=== PATIENT | female | born 1970 | race Caucasian/White ===

== ENCOUNTER 2017-09-30 22:10 | Emergency (ER) | payer OTHER ==
[2017-09-30 22:13] VITALS: BP 137/76; PULSE 70; TEMP 98.4; BMI 21.1
[2017-09-30] MEDS ORDERED: SODIUM CHLORIDE 1,000 ML IV ONE (22:38)
[2017-09-30] MEDS ORDERED: KETOROLAC TROMETHAMINE 30 MG/1 ML VIAL IVPUSH ONE (22:39)
--- NOTE | 2017-09-30 22:39 | PDOC ---
History of Present Illness - General Chief Complaint: Allergic Reaction Stated Complaint: ALLERGIC REACTION Time Seen by Provider: 09/30/17 22:31 History Source: Patient Exam Limitations: No Limitations - History of Present Illness Initial Comments: 09/30/17 22:30 This is a 47-year-old female who comes in complaining of severe epigastric pain approximately 20 minutes after taking Tylenol with Codeine. Patient denies any nausea. Patient said pain is radiating to her chest. Patient denies any shortness of breath, cough, congestion. Patient had recent dental surgery today and took the Tylenol with codeine for some dental pain. She is otherwise healthy , has no history of hypertension, high cholesterol, diabetes or family history of coronary artery disease. Patient denies history of gastritis or similar symptoms in the past. PAST MEDICAL HISTORY: no significant history PAST SURGICAL HISTORY: no significant history FAMILY HISTORY: no pertinant history SOCIAL HISTORY: Pt lives with family and is employed. MEDICATIONS: reviewed ALLERGIES: As per nursing notes Review of Systems General: No fevers or chills, no weakness, no weight loss HEENT: No change in vision. No sore throat,. No ear pain CardioVascular: No chest pain or shortness of breath Respiratory:No cough, or wheezing. Gastrointestinal: no nausea, vomitting, diarrhea or constipation, No rectal bleeding Genitourinary: No dysuria, hematuria, or frequency Musculoskeletal: No joint or muscle pain or swelling Neurologic: No headache, vertigo, dizziness or loss of consciousness Psychiatric: nor depression Skin: No rashes or easy bruising Endocrine: no increased thirst or abnormal weight change Allergic: no skin or latex allergy All other systems reviewed and normal Exam: General: Well-nourished well-developed individual, in distress. Writhing with discomfort on the stretcher HEENT: Throat: Normal, tonsils normal, no erythema or exudate Neck: Supple, no meningeal signs, no lymphadenopathy Eyes::Pupils equal reactive and round, extraocular motion intact Chest: Nontender to palpation Cardiac: S1-S2 normal, regular rate and rhythm, no murmurs rubs or gallops Respiratory: Lungs clear to auscultation bilateral Abdomen: Soft, nondistended, normal bowel sounds, moderately tender across palpation of upper abdomen no guarding or rebound Extremities: Warm, dry, no cyanosis, clubbing, or edema Skin: No rashes Neuro: Alert and oriented x3, CN II - XII intact, nonfocal exam with normal strength, normal sensation, normal reflexes, normal gait, Psych: Normal mood and affect Medical decision making: This is a 47-year-old female who developed acute onset of epigastric pain post taking a codeine tablet. Patient has not had codeine in the past. Most likely her symptoms are secondary to the codeine however will obtain a basic workup to rule out other causes. CBC, comp, lipase sent to lab EKG ordered. Patient given fluids, hyoscyamine, Pepcid and Zofran We will reassess and evaluate results of workup 23:30 Reassessment patient's symptoms have completely resolved she is completely comfortable and denies any complaints at this time post medication patient's workup was unremarkable with a normal white count and normal chemistries with the exception of a 3.3 potassium. Patient does have a history of hypokalemia very mild in the past. Patient's EKG showed normal sinus rhythm at a rate of 68 normal EKG Patient discharged home told to not take codeine and avoid codeine in the future patient did not want any additional pain medication at this time. : Past History - Past Medical History Allergies/Adverse Reactions: Allergies Allergy/AdvReac Type Severity Reaction Status Date / Time No Known Allergies Allergy Verified 09/30/17 22:11 Home Medications: Ambulatory Orders NK [No Known Home Medication] 09/30/17 COPD: No DVT: No - Surgical History Cholecystectomy: Yes - Suicide/Smoking/Psychosocial Hx Smoking History: Never smoked Hx Alcohol Use: Yes Drug/Substance Use Hx: No Substance Use Type: Alcohol *Physical Exam - Vital Signs Last Vital Signs Temp Pulse Resp BP Pulse Ox 98.4 F 70 18 137/76 100 09/30/17 22:11 09/30/17 22:11 09/30/17 22:11 09/30/17 22:11 09/30/17 22:11 ED Treatment Course - LABORATORY CBC & Chemistry Diagram: 09/30/17 22:34 09/30/17 22:34 *DC/Admit/Observation/Transfer Diagnosis at time of Disposition: Medication reaction Qualifiers: Encounter type: initial encounter Qualified Code(s): T88.7XXA - Unspecified adverse effect of drug or medicament, initial encounter - Discharge Dispostion Disposition: HOME Condition at time of disposition: Stable Admit: No - Referrals Referrals: Nelly Langley MD [Primary Care Provider] - - Patient Instructions Additional Instructions: Continue your medications as prescribed. Return to the emergency department immediately with ANY new, persistent or worsening symptoms. Continue any medications as previously prescribed by your physician. You should follow up with your primary doctor as soon as possible regarding today's emergency department visit. . Please make sure your doctor reviews the results of your emergency evaluation. Thank you for coming to the Emergency Department today for your care. It was a pleasure to see you today. Please note that your evaluation is INCOMPLETE until you follow-up with your doctor. - Post Discharge Activity
[2017-09-30] MEDS ORDERED: HYOSCYAMINE SULFATE 0.125 MG *ODT PO ONE (22:44)
[2017-09-30] MEDS ORDERED: HYOSCYAMINE SULFATE 0.125 MG *ODT ONE (22:48)
[2017-09-30] MEDS ORDERED: KETOROLAC TROMETHAMINE 30 MG/1 ML VIAL ONE (22:48)
[2017-09-30] MEDS ORDERED: FAMOTIDINE 20 MG/50 ML IVPB 20 MG/50 ML MG IVPB ONE (22:48)
[2017-09-30] MEDS ORDERED: ONDANSETRON 4 MG/2 ML VIAL IVPB ONE (22:58)
[2017-09-30 23:01] LABS: BASO % 0.3 % (0-2.0); EOS % 0.9 % (0-4.5); HEMATOCRIT 35.1 % (32.4-45.2); HEMOGLOBIN 12.4 GM/dl (10.7-15.3); LYMPH % 41.2 % (8-40); MCH 31.4 pg (25.7-33.7); MCHC 35.4 g/dl (32.0-36.0); MEAN CELL VOLUME 88.8 fl (80-96); MEAN PLT VOLUME 7.9 fl (7.5-11.1); MONO % 8.8 % (3.8-10.2); NEUT % 48.8 % (42.8-82.8); PLATELET COUNT 260 K/MM3 (134-434); RBC 3.95 M/mm3 (3.60-5.2); RDW 12.1 % (11.6-15.6); WHITE BLOOD COUNT 6.9 K/mm3 (4.0-10.8)
[2017-09-30] MEDS ORDERED: ONDANSETRON 4 MG/2 ML VIAL ONE (23:10)
[2017-09-30 23:11] LABS: ALK PHOS 47 U/L (32-92); ANION GAP 10 (8-16); BILIRUBIN,TOTAL 0.3 mg/dl (0.2-1.0); BLOOD UREA NITROGEN 10 mg/dl (7-18); CALCIUM 8.7 mg/dl (8.4-10.2); CHLORIDE 102 mmol/L (98-107); CO2 24 mmol/L (22-28); CREATININE 0.7 mg/dl (0.6-1.3); GLUCOSE,RANDOM 110 mg/dl (74-106); POTASSIUM 3.3 mmol/L (3.5-5.1); SGOT/AST 61 U/L (10-42); SGPT/ALT 26 U/L (10-40); SODIUM 136 mmol/L (136-145); TOT PROT 6.5 g/dl (6.4-8.3)
[2017-09-30] MEDS ORDERED: FAMOTIDINE IV 20 MG/12 ML VIAL IVPUSH ONE (23:16)
[2017-10-01] MEDS ORDERED: FAMOTIDINE IV 20 MG/12 ML VIAL IVPUSH ONE ×2 (22:37→23:00)
--- NOTE | 2017-10-02 16:55 | EKG ---
Test Reason : Blood Pressure : / mmHG Vent. Rate : 068 BPM Atrial Rate : 068 BPM P-R Int : 158 ms QRS Dur : 076 ms QT Int : 388 ms P-R-T Axes : 081 089 062 degrees QTc Int : 412 ms NORMAL SINUS RHYTHM NO PREVIOUS ECGS AVAILABLE Confirmed by MD SYDNI, ESSIE ([id number]) on 10/02/2017 4:55:40 PM Referred By: BRADLY Confirmed By:ESSIE TROY MD
== END 2017-09-30 23:59 | disposition home or self-care (01) ==
LOC: FER 22:10
PROC: 3E033GC Introduction of Other Therapeutic Substance into Peripheral Vein, Percutaneous Approach (ICD-10-PCS; principal; 2017-09-30)
PROC: 3E0337Z Introduction of Electrolytic and Water Balance Substance into Peripheral Vein, Percutaneous Approach (ICD-10-PCS; 2017-09-30)
PROC: 3E0333Z Introduction of Anti-inflammatory into Peripheral Vein, Percutaneous Approach (ICD-10-PCS; 2017-09-30)
DX: T88.7XXA Unspecified adverse effect of drug or medicament, initial encounter (principal); X58.XXXA Exposure to other specified factors, initial encounter; Y93.89 Activity, other specified; Y92.9 Unspecified place or not applicable
CPT/HCPCS: 36415; 80053; 82550; 82553; 84484; 85025; 93005; 99282-25